=== PATIENT | male | born 1955 | race Caucasian/White ===

== ENCOUNTER 2022-12-27 10:39 | Day surgery (SDC) | payer BC ==
[2022-12-26 09:30] LABS: BASOPHILS % (AUTO) 0.7 % (0-1); EOSINOPHILS # (AUTO) 0.1 X10'3 (0-0.9); EOSINOPHILS % (AUTO) 2.3 % (0-6); HEMATOCRIT 43.5 % (42.0-52.0); HEMOGLOBIN 14.3 g/dl (14.0-17.9); LYMPHOCYTES # (AUTO) 1.5 X10'3 (1.1-4.8); LYMPHOCYTES % (AUTO) 24.5 % (21-51); MEAN CORPUSCULAR VOLUME 94.2 FL (78-98); MEAN PLATELET VOLUME 7.9 FL (7.4-10.4); MONOCYTES # (AUTO) 0.5 X10'3 (0-0.9); MONOCYTES % (AUTO) 8.2 % (2-12); NEUTROPHILS # (AUTO) 3.9 X10'3 (1.8-7.7); NEUTROPHILS % (AUTO) 64.3 % (42-75); PLATELET COUNT 277 X10'3 (140-440); RED BLOOD COUNT 4.61 X10'6 (4.70-6.10); RED CELL DISTRIBUTION WIDTH 13.9 % (11.5-14.5); WHITE BLOOD COUNT 6.1 X10'3 (4.5-11.0)
[2022-12-26 09:45] LABS: APTT 27 SECONDS (22-32); PROTHROMBIN TIME 10.4 SECONDS (9.0-12.0)
[2022-12-26 09:55] LABS: ALBUMIN 3.5 G/DL (3.4-5.0); ANION GAP 5 (8-16); BLOOD UREA NITROGEN 21 MG/DL (7-18); BUN/CREATININE RATIO 22.6 (10.0-20.0); CALCIUM 8.9 MG/DL (8.5-10.1); CHLORIDE 106 MMOL/L (99-107); CHOL/HDL RATIO 2.3 (0.00-4.99); CHOLESTEROL 118 MG/DL (0-200); CREATININE 0.93 MG/DL (0.60-1.10); GLUCOSE 117 MG/DL (70-104); HDL CHOLESTEROL 51 MG/DL (35-60); LDL CHOLESTEROL 48 MG/DL (50-100); POTASSIUM 4.3 MMOL/L (3.5-5.1); SODIUM 142 MMOL/L (135-145); TOTAL CARBON DIOXIDE 30.6 MMOL/L (24-32); TRIGLYCERIDES 77 MG/DL (20-135); eGFR 81 ML/MIN
[~2022-12-27] VITALS: Ht 195.6 cm; Wt 108.4 kg
[2022-12-27] VITALS (7 sets, daily range): BP systolic 128–143; BP diastolic 72–80; PULSE 64–72; RESP 12–17; TEMP 98.1; O2SAT 96–99
[2022-12-27] MEDS ORDERED: diphenhydrAMINE 25mg capsule PO PRN (10:50)
[2022-12-27] MEDS ORDERED: normal saline 1,000 ML IV SCH (10:50)
[2022-12-27] MEDS ORDERED: LORazepam 0.5 MG tablet PO PRN (10:50)
[2022-12-27] MEDS ORDERED: SIMV10TA98 PO (10:51)
[2022-12-27] MEDS ORDERED: ASPI-611 PO (10:51)
[2022-12-27] MEDS ORDERED: heparin 1,000unit/ml 10ml vial 10 ML ONE (12:26)
[2022-12-27] MEDS ORDERED: verapamil 2.5 mg/ml inj IV ONE (12:26)
[2022-12-27] MEDS ORDERED: midazolam 1 mg/ML 2ml injection ONE ×2 (12:26→13:18)
[2022-12-27] MEDS ORDERED: iohexol 350MG/ML 100ml bottle IV ONE ×2 (12:26→13:32)
[2022-12-27] MEDS ORDERED: fentaNYL/PF 50MCG/1 ML 2ML syringe ONE (12:26)
[2022-12-27] MEDS ORDERED: nitroGLYCERIN-Tridil 50MG/D5W 250 ML IV ONE (12:26)
[2022-12-27] MEDS ORDERED: LIDOcaine 1% (10mg/ml) 2ml vial ONE (12:26)
[2022-12-27] MEDS ORDERED: LIDOcaine 1% (10mg/ml)w/preservative inj. 20ml MDV ONE (13:16)
[2022-12-27] MEDS ORDERED: HYDROcodone/acetaminophen 10/325mg tab PO PRN (14:25)
[2022-12-27] MEDS ORDERED: HYDROcodone/acetaminophen 5mg/325mg tablet PO PRN (14:25)
[2022-12-27 15:07] LABS: ISTAT HGB ART 12.9 g/dl (14.0-17.9); ISTAT Hct ART 38 %PCV (42-52); ISTAT O2 SATURATION ARTERIAL 92 % (95-98); ISTAT SOURCE ART
[2022-12-27 16:20] LABS: ISTAT HGB MIX 13.3 g/dl (14.0-17.9); ISTAT Hct MIX 39 %PCV (42-52); ISTAT O2 SATURATION MIX VENOUS 65 % (60-80); ISTAT SOURCE VEN
== END 2022-12-27 16:00 | disposition home or self-care (01) ==
LOC: SSTAY O 10:39
PROVIDERS: ATTEND Student in an Organized Health Care Education/Training Program
DX: I35.0 Nonrheumatic aortic (valve) stenosis (principal); I25.10 Atherosclerotic heart disease of native coronary artery without angina pectoris; I45.10 Unspecified right bundle-branch block; I65.29 Occlusion and stenosis of unspecified carotid artery; I10 Essential (primary) hypertension; E78.5 Hyperlipidemia, unspecified; Z79.82 Long term (current) use of aspirin; Z79.899 Other long term (current) drug therapy; Z87.891 Personal history of nicotine dependence
CPT/HCPCS: 36415; 80048; 80061; 82803; 85014; 85025; 85610; 85730; 93005; 93460; 99152; 99153; J1644; J2250; J3010; J3490; J7030; Q0163; Q9967; 93456; A6258; C1751; C1760; C1769; C1894